=== PATIENT | female | born 1985 ===

== ENCOUNTER 2018-04-19 08:40 | Inpatient (IN) | payer MEDICAID, SELFPAY ==
[2018-04-19] MEDS ORDERED: Oxytocin 30 UNIT 30 UNITS/500 ML BAG IV ONE ×2 (08:59→12:16)
[2018-04-19] MEDS ORDERED: Lactated Ringer's 1,000 ML IV SCH (09:00)
[2018-04-19 10:27] LABS: BASO # 0.1 K/uL (0.0-0.2); BASO % 0.8 % (0.0-2.0); EOS # 0.1 K/uL (0.0-0.7); HEMOGLOBIN 14.2 g/dL (11.0-16.0); LYMPH # 1.3 K/uL (1.0-4.3); LYMPH % 20.3 % (20.0-40.0); MEAN CELL VOLUME 83.3 fL (81.0-99.0); MEAN CORPUSCULAR HEMOGLOBIN 27.8 pg (27.0-31.0); MEAN CORPUSCULAR HGB CONC 33.4 g/dL (33.0-37.0); MEAN PLATELET VOLUME 9.8 fL (7.2-11.7); MONO # 0.5 K/uL (0.0-0.8); MONO % 7.1 % (0.0-10.0); NEUT # 4.5 K/uL (1.8-7.0); NEUT % 69.8 % (50.0-75.0); RBC 5.1 Mil/uL (3.80-5.20); RED CELL DISTRIBUTION WIDTH 15.5 % (11.5-14.5); WHITE BLOOD COUNT 6.5 K/uL (4.8-10.8)
[2018-04-19 10:37] LABS: URINE BACTERIA RARE (<OCC); URINE BILIRUBIN NEGATIVE (NEGATIVE); URINE BLOOD 1+ (NEGATIVE); URINE CLARITY Clear (Clear); URINE COLOR Yellow (YELLOW); URINE GLUCOSE (UA) NORMAL (Normal); URINE LEUKOCYTE ESTERASE TRACE Leu/uL (Negative); URINE PROTEIN NEGATIVE (NEGATIVE); URINE UROBILINOGEN NORMAL mg/dL (0.2-1.0)
[2018-04-19 10:40] LABS: SQUAMOUS EPITHIAL 4 /hpf (0-5)
[2018-04-19 10:41] LABS: ALB/GLOB RATIO 1.1 (1.0-2.1); ALBUMIN 3.8 g/dL (3.5-5.0); ALT/SGPT 23 U/L (9-52); AST/SGOT 25 U/L (14-36); BLOOD UREA NITROGEN 10 mg/dL (7-17); GFR NON-AFRICAN AMERICAN > 60
[2018-04-19] MEDS ORDERED: Bupivacaine HCl/FentaNYL Cit 100 ML EPI ONE (12:29)
--- NOTE | 2018-04-19 16:34 | OBHP ---
Datetime: 04/19/2018 09:01 IP Adm Impression: Term, intrauterine ; No Active Labor; Ruptured Membranes IP Admit Plan: Admit to unit Admit Comment, IP Provider: Patient is a 32 year old at 38w5d by LMP with SUMA 04/28/18 who pr esents to the unit for leakage of fluid that started at 6am. Patient states that the fluid is clear. She also reports having contractions that started approximately 3-4am. Contractions are 5 min apart a nd rates the pain a 6/10 on pain scale. Offers no other complaints at this time. Endorses +FM, denies VB. Issues: Quantiferon gold positive Sickle cell trait - denied amniocentesis Low ESTUARDO-A (2%) on FTS OB Hx: 1. 2010 at 38 weeks, female , 6lbs, no complications, in [facility] 2. SAB at 10 days gestation 3. Current [employer] Hx: LMP 07/22/17 [place]: 14 x regular x 4 days History of positive HPV and ovarian cysts Last pap was 09/2017 Denies history of fibroids Allergies: NKDA Medications: PNV Medical History: Denies Surgical History: Appendectomy Social History: Denies alcohol, tobacco, drug use Family History: Mother - hypertension, diabetes; Father - (unknown cause) PE: See above A/P: This is a 32 year old at 38w5d who presents with SROM, early labor -Admit to unit -CEFM and TOCO -Admission labs : CBC, CMP, TS, UA -LR At 125cc/hr -GBS negative, no antibiotics needed at this time -Pitocin for augmentation -Anesthesia on consult for epidural if patient desires -Quantiferon gold positive - CXR -Anticipate vaginal delivery -Plan discussed with Dr Goyo Joy DO PGY-2 Attending Note: patient seen, evaluated and examined by me with the Resident. I agree with the abo ve as documented. Pelvic Type - PN: Adequate Extremities - PN: Normal Lungs - PN: Normal Heart - PN: Normal General - PN: Normal FHR - Baseline A Provider: 140 Amniotic Fluid Color, Provider: Clear Membranes, Provider: Ruptured Contraction Comments Provider: q4-5 min Comments, ACOG Physical Exam: Gen: AAOx3 Abd: Soft, gravid SSE: Positive pooling, +nitrazine SVE: /-3 IP Hx Assessment: The History has been Reviewed and is Current EGA AdmitDate IP: 38.5 Vital Signs Provider: Reviewed IP Chief Complaint: Uterine contractions; Suspected ruptured membranes NICHD Variability Prov Fetus A: Moderate 6-25bpm NICHD Accel Fetus A IP Provider: 15X15 FHR Category Provider Fetus A: Category I NICHD Decel Fetus A IP Provider: None Dilatation, Provider: 4 Effacement, Provider: 50 Station, Provider: -3 Genitourinary Exam: Normal
--- NOTE | 2018-04-19 17:13 | OBPN ---
Datetime: 04/19/2018 16:49 IP Progress Impression: Normal progression of labor IP Procedures: Sterile Vag Exam IP Progress Plan: Continue present management; Anticipate Vaginal Delivery Membranes, Provider: Ruptured Contraction Comments Provider: q2-3 min FHR - Baseline A Provider: 135 IP Progress Note Comment: Patient seen and examined at bedside. Patient is s/p epidural and reports feeling pressure. Offers no other complaints at this time Vital signs reviewed SVE: /+2 A/P: Patient is a 32 year old at 38w5d in active labor -CEFM and TOCO -Category I tracing -Continue pitocin for augmentation -Anticipate vaginal delivery -Plan discussed with Dr Goyo Joy DO PGY-2 Attending Note: I agree withthe above. Patient at end of Stage 1 of labor. Category 1 tracing. Pat ent is clinically stabla. Plan as above. Vital Signs Provider: Reviewed NICHD Accel Fetus A IP Provider: 15X15 FHR Category Provider Fetus A: Category I NICHD Variability Prov Fetus A: Moderate 6-25bpm Dilatation, Provider: 10 Effacement, Provider: 100 Station, Provider: 2 NICHD Decel Fetus A IP Provider: None Datetime: 04/19/2018 09:01 Amniotic Fluid Color, Provider: Clear
[2018-04-19] MEDS ORDERED: Benzocaine/Menthol 20%-0.5% Topical Spray (60 ml) TOP PRN (17:56)
[2018-04-19] MEDS ORDERED: Erythromycin 0.5% Ophth Oint 1 APPLIC/3.5 G ONE (18:10)
[2018-04-19] MEDS ORDERED: Phytonadione 1 mg/0.5 ml Inj (Neonatal) ONE (18:10)
--- NOTE | 2018-04-19 18:34 | OBDS ---
DELIVERY PERSONNEL Delivery Doctor: Kathy Nance MD Signal Apprentice: Klarissa Romo RN Anesthesiologist: Dr Murphy Resident: Dr Joy MATERNAL INFORMATION Delivery Anesthesia: Epidural Medications in Delivery: 30 units of pitocin in 500 ml NS Estimated Blood Loss (ml): 150 Placenta Cultured: No Maternal Complications: None Provider Comments: This G3 now P2 delivered a viable female at 17:35pm over 1st degree perin eal laceration. Infant's head was delivered in a controlled manner. 's shoulder's were delivere d atraumatically. Infant was placed on mother's abdomen. Cord was clamped and cut after 60 second del ay. Cord blood was collected. An intact 3V cord placenta was delivered spontaneously. Pitocin was sta rted. EBL was 150cc. Mom and are recovering in stable condition. Dr. Nance present for the e ntire delivery. Kait Joy DO PGY-2 Attending Note: I was present for the entire delivery. I agree with the above as documented. Patie nt tolerated procedure; bonding with infant. Both in stable condition LABOR SUMMARY EDC: 04/28/2018 00:00 No. Babies in Womb: 1 Labor Anesthesia: Epidural LABOR INFORMATION Onset of Labor: 04/19/2018 16:41 Complete Dilatation: 04/19/2018 16:41 Oxytocin: Augmentation Group B Beta Strep: Negative Steroids Given: None Reason Steroids Not Administered: Not Applicable MEMBRANES Membranes Rupture Method: Spontaneous Rupture of Membranes: 04/19/2018 06:00 Length of Rupture (hrs): 11.58 Amniotic Fluid Color: Clear Amniotic Fluid Amount: Moderate Amniotic Fluid Odor: None STAGES OF LABOR Stage 1 hrs: 0 Stage 1 min: 0 Stage 2 hrs: 0 Stage 2 min: 54 Stage 3 hrs: 0 Stage 3 min: 7 Total Time in Labor hrs: 1 Total Time in Labor min: 1 VAGINAL DELIVERY Episiotomy: None Laceration Extension: First Degree Laceration Type: Perineal Laceration Repair: Yes Laceration Repair Note: 1st degree perineal laceration repaired with 3-0 chromic suture in continous fashion. Hemostasis achieved. Initial Vag Sponge Count: 11 Final Vag Sponge Count: 11 Initial Vag Sharps Count: 1 Final Vag Sharps Count: 1 Sponge Count Correct: Yes Sharps Count Correct: Yes Count Comment: Count acknowledged by Dr Nance BABY A INFORMATION Delivery Date/Time: 04/19/2018 17:35 Method of Delivery: Vaginal Born in Route : No : N/A Forceps: N/A Vacuum Extraction: N/A Shoulder Dystocia : No SHOULDER DYSTOCIA BABY A Delivery Date/Time: 04/19/2018 17:35 PRESENTATION/POSITION BABY A Presentation: Cephalic Cephalic Presentation: N/A Vertex Position: Left Occipital Anterior Breech Presentation: N/A PLACENTA INFORMATION BABY A Placenta Delivery Time : 04/19/2018 17:42 Placenta Method of Delivery: Spontaneous Placenta Status: Delivered SCORES BABY A Heart Rate 1 min: >100 bpm Resp Effort 1 min: Good Cry Reflex Irritability 1 min: Cough or Sneeze or Pulls Away Muscle Tone 1 min: Active Motion Color 1 min: Body [place], Extremities Blue Resuscitation Effort 1 min: Tactile Stimulation SCORE 1 MIN: 9 Heart Rate 5 min: >100 bpm Resp Effort 5 min: Good Cry Reflex Irritability 5 min: Cough or Sneeze or Pulls Away Muscle Tone 5 min: Active Motion Color 5 min: Body [place], Extremities Blue Resuscitation Effort 5 min: N/A SCORE 5 MIN: 9 INFANT INFORMATION BABY A Gestational Age at Delivery: 38.5 Gestational Status: Term Infant Outcome : Liveborn Infant Condition : Stable Infant Sex: Female IDENTIFICATION/MEDS BABY A ID Band Number: [id number] ID Band Location: Left Leg; Left Arm Sensor Applied: Yes Sensor Number: [id number] Sensor Location : Cord Clamp Vitamin K Given : Not Given Erythromycin Given: Not Given WEIGHT/LENGTH BABY A Birthweight (gms): 3390 Weight (lb): 7 Infant Weight (oz): 8 Infant Length Inches: 20.00 Infant Length cms: 50.8 CORD INFORMATION BABY A No. Cord Vessels: 3 Cord Blood Taken: Yes Suction: Mouth; Nose ASSESSMENT BABY A Complications: None Physical Findings at Delivery: Molding of the Head; Portuguese Spots Infant Respirations: Appears Normal Saw Feeder/ALS Called : No Care By: Ashley Gillespie RN Transferred To: Remains with Mother
[2018-04-20 08:14] LABS: BASO % 0.2 % (0.0-2.0); EOS # 0.2 K/uL (0.0-0.7); LYMPH # 1.4 K/uL (1.0-4.3); LYMPH % 13.1 % (20.0-40.0); MEAN CELL VOLUME 84.1 fL (81.0-99.0); MEAN CORPUSCULAR HEMOGLOBIN 27.6 pg (27.0-31.0); MEAN CORPUSCULAR HGB CONC 32.8 g/dL (33.0-37.0); MEAN PLATELET VOLUME 9.4 fL (7.2-11.7); MONO # 0.9 K/uL (0.0-0.8); MONO % 8.1 % (0.0-10.0); NEUT # 8.4 K/uL (1.8-7.0); NEUT % 76.6 % (50.0-75.0); RBC 4.32 Mil/uL (3.80-5.20); RED CELL DISTRIBUTION WIDTH 15.4 % (11.5-14.5)
[2018-04-20 08:27] LABS: WHITE BLOOD COUNT 10.9 K/uL (4.8-10.8)
[2018-04-20 08:28] LABS: HEMOGLOBIN 11.9 g/dL (11.0-16.0)
[2018-04-20] MEDS: Multiple Vitamins Tab PO SCH (10:48)
--- NOTE | 2018-04-20 13:21 | RAD ---
Date of service: 04/20/2018 HISTORY: + PPD COMPARISON: No prior. FINDINGS: LUNGS: No active pulmonary disease. PLEURA: No significant pleural effusion identified, no pneumothorax apparent. CARDIOVASCULAR: No aortic atherosclerotic calcification present. Normal cardiac size. No pulmonary vascular congestion. OSSEOUS STRUCTURES: Rightward convexity thoracic spine VISUALIZED UPPER ABDOMEN: Normal. OTHER FINDINGS: None. IMPRESSION: No acute cardiopulmonary pathology. Other findings as above.
--- NOTE | 2018-04-20 15:51 | OBPPN ---
Datetime: 04/20/2018 07:55 PP Pain Prov: Within normal limits PP Nausea Prov: Denies PP Flatus Prov: Yes PP BM Prov: No PP Heart Prov: Normal PP Lungs Prov: Normal PP Abdomen/Uterus Prov: Normal PP C/S Incision Prov: Not Applicable PP Progress Prov: Normal PP Comments Phys Exam Prov: Cardio: RRR, no murmurs Pulm: CTABL Abdomen: soft, mildly tender, fundal height midline and one fingerbreadth below level of umbilicus Extremities: no swelling PP Impression Prov: Normal progression PP Plan Prov: Continue present management PP Progress Note Prov: Patient was seen and examined at bedside in no acute distress. Patient report s mild lower abdominal soreness, 2/10 at present time, but states she feels well. Patient admits to p assing flatus but no BM at this time. Pain from perineal laceration controlled with Motrin and Tyleno l. Patient has been ambulating within room. Patient otherwise has no complaints. 32 year old [place] speaking female s/p PPD#1 of liveborn female - Continue Motrin and Tylenol prn for pain - Continue Colace to encourage bowel movements. - WBC 10.9 and Hgb 11.9/36.4. Continue to monitor CBC. Begin Feosol 325 mg PO daily - Patient is exclusively at this time. Frequency and length reviewed with patient. E ncourage breast feeding and ambulation - Continue current management. Patient seen, case reviewed and plan approved by Dr. Petersen. Renan Lang, PGY-1 Vital Signs Provider PP: Reviewed; Within Normal Limits
[2018-04-20] MEDS ORDERED: Influenza Vaccine 60 mcg/0.5 mL SYR (4YR UP) IM ONE (18:29)
[2018-04-21 07:25] LABS: BASO % 0.1 % (0.0-2.0); EOS # 0.1 K/uL (0.0-0.7); EOS % 1.6 % (0.0-4.0); HEMOGLOBIN 12.3 g/dL (11.0-16.0); LYMPH # 1.4 K/uL (1.0-4.3); LYMPH % 20.7 % (20.0-40.0); MEAN CELL VOLUME 84.3 fL (81.0-99.0); MEAN CORPUSCULAR HEMOGLOBIN 28.2 pg (27.0-31.0); MEAN CORPUSCULAR HGB CONC 33.4 g/dL (33.0-37.0); MEAN PLATELET VOLUME 9.3 fL (7.2-11.7); MONO # 0.5 K/uL (0.0-0.8); NEUT # 4.7 K/uL (1.8-7.0); NEUT % 70.6 % (50.0-75.0); NRBC % 0.1 % (0.0-2.0); RBC 4.38 Mil/uL (3.80-5.20); RED CELL DISTRIBUTION WIDTH 15.6 % (11.5-14.5); WHITE BLOOD COUNT 6.7 K/uL (4.8-10.8)
--- NOTE | 2018-04-21 08:30 | OBDCSUM ---
Datetime: 04/21/2018 07:24 Discharged to, Provider: Home Follow up at, Provider: [facility] Disch Instr Activity: Normal activity; May be up to bathroom; May be up for meals; May Shower Disch Instr Diet: Regular Discharge Instructions, Provider: Routine instructions given Discharge Diagnosis, Provider: Term Delivered Discharge Time: 04/21/2018 10:00 Follow up in weeks, Provider: 6 weeks Contraception discussed, Prov: Yes Disch Activity Restrictions: No sexual activity; Nothing in vagina - [place], tampons, douche Discharge Comment, Provider: Pelvic rest x 6 weeks, Motrin as needed for pain Contraception after Delivery: IUD
--- NOTE | 2018-04-21 08:30 | OBPPN ---
Datetime: 04/21/2018 07:17 PP Pain Prov: Within normal limits PP Nausea Prov: Denies PP Flatus Prov: Yes PP BM Prov: Yes PP Breasts Prov: Normal PP Heart Prov: Normal PP Lungs Prov: Normal PP Abdomen/Uterus Prov: Normal PP Lochia Prov: Normal PP Vulva/Perineum Prov: Normal PP Extremities Prov: Normal PP Progress Prov: Normal PP Impression Prov: Normal progression PP Plan Prov: Continue present management; Discharge PP Progress Note Prov: Patient seen and examined at bedside. Per nursing no acute events overnight. Patient is doing well, reports having mild pain in the right pelvic area. Pain controlled with Motrin . She is ambulating and tolerating diet. Reports passing flatus and had a BM. Urinating without diffi culty. Breast and bottle feeding. Denies headaches, dizziness, cp, palpitations, sob, urinary symptom s, changes in bowel habits. VS: 119/86 90 98.2 Gen: AAOx3, NAD CV: RRR Lungs: CTA B/L Abd: Soft, fundus 2 fingerbreathes below umbilicus Ext: No clubbing cyanosis edema; no calf tenderness, negative homans sign Labs: 6.5>14.2/42.5<303 10.9<11.9/36.4<270 O positive Rubella immune A/P: Patient is a 32 year old at 38w5d s/p w 1st degree perineal laceration PPD#2 -Stable, afebrile -Post hemoglobin stable -Encourage ambulation and hydration -Encourage breast feeding -Quantiferon gold positive: CXR negative -Pap 09/2017 HPV+, will need repeat pap smear in 1 year -Patient for discharge home today -Pelvic rest x 6 weeks, Motrin as needed for pain, follow up with clinic in 6 weeks for visit -Plan discussed with Dr Veronique Joy DO PGY-2 Vital Signs Provider PP: Reviewed; Within Normal Limits
[2018-04-21 08:54] VITALS: BP 127/98; PULSE 99; RESP 18; TEMP 97.9; O2SAT 99
[2018-04-21] MEDS: Multiple Vitamins Tab PO SCH (09:38)
== END 2018-04-21 12:10 | disposition home or self-care (01) | DRG 560 ==
LOC: C.EROB 08:40 → C.4D 08:59 → C.4M 19:47
PROVIDERS: ADMIT Obstetrics & Gynecology; ATTEND Obstetrics & Gynecology
PROC: 0HQ9XZZ Repair Perineum Skin, External Approach (ICD-10-PCS; principal; 2018-04-19)
PROC: 10E0XZZ Delivery of Products of Conception, External Approach (ICD-10-PCS; 2018-04-19)
DX: O70.0 First degree perineal laceration during delivery (principal); Q82.8 Other specified congenital malformations of skin; Z37.0 Single live birth; Z3A.38 38 weeks gestation of pregnancy